=== PATIENT | female | born 1965 | race Caucasian/White ===

== ENCOUNTER 2017-11-21 08:16 | Day surgery (SDC) | payer BC ==
[2017-11-21] MEDS ORDERED: LIDOCAINE 1% MDV 20ML VIAL SQ (08:30)
[2017-11-21] MEDS ORDERED: PROPOFOL 200 MG/20 ML VIAL As Ordered (09:25)
[2017-11-21] MEDS ORDERED: LIDOCAINE 2% INJ 100 MG/5 ML SDV (FOR ANES.) As Ordered (09:25)
[2017-11-21] MEDS ORDERED: ROCURONIUM BROMIDE 50 MG/5 ML VIAL As Ordered (09:25)
[2017-11-21] MEDS ORDERED: fentaNYL 100 MCG/2 ML INJECTION (J3010) As Ordered (09:26)
[2017-11-21] MEDS ORDERED: MIDAZOLAM INJ 2 MG/2 ML VIAL (J2250) As Ordered (09:26)
[2017-11-21] MEDS ORDERED: GLYCOPYRROLATE INJ 0.2 MG/ML 2 ML VIAL As Ordered (09:29)
[2017-11-21] MEDS: LR 1,000 ML IV (09:42)
[2017-11-21] MEDS ORDERED: ePHEDrine SULFATE 25 MG/5 ML(5MG/ML) SYRINGE As Ordered (10:34)
[2017-11-21] MEDS ORDERED: fentaNYL 100 MCG/2 ML INJECTION (J3010) IV (11:15)
[2017-11-21] MEDS ORDERED: IBUPROFEN 600 MG TAB PO (11:15)
[2017-11-21] MEDS ORDERED: ONDANSETRON 4MG/2ML VIAL (J2405) IV (11:15)
[2017-11-21] MEDS ORDERED: HYDROMORPHONE HCL 0.5 MG/ 0.5 ML SYRINGE (J1170 PER 1) IV (11:15)
[2017-11-21] MEDS ORDERED: PERCOCET 5MG/325MG TAB PO (11:15)
[2017-11-21] MEDS ORDERED: LR 1,000 ML IV ×2 (11:15)
== END 2017-11-21 12:53 | disposition home or self-care (01) ==
LOC: M SDC 08:16
DX: N95.0 Postmenopausal bleeding (principal); R93.8 Abnormal findings on diagnostic imaging of other specified body structures; N84.8 Polyp of other parts of female genital tract; I10 Essential (primary) hypertension; E78.00 Pure hypercholesterolemia, unspecified; M25.562 Pain in left knee; Z79.899 Other long term (current) drug therapy; Z87.828 Personal history of other (healed) physical injury and trauma; Z87.39 Personal history of other diseases of the musculoskeletal system and connective tissue; Z98.51 Tubal ligation status
CPT/HCPCS: 58558

== ENCOUNTER 2018-05-29 07:34 | Day surgery (SDC) | payer BC ==
[~2018-05-29] VITALS: Ht 154.9 cm; Wt 62.1 kg
[~2018-05-29 07:34] MED LIST: BLAC40CA2 PO; CYCL10TA PO; IBUPOTC PO; LR 1,000 ML IV ONE; MAXZTA PO; MELA3TAB24 PO; METR1GEL4 TOP; MULT1TAB10 PO; TACR0.1O TOP; TUMS750C5 PO; VITA-110 PO
[2018-05-29] MEDS ORDERED: LIDOCAINE 2% INJ 100 MG/5 ML SDV (FOR ANES.) As Ordered ONE (07:49)
[2018-05-29] MEDS ORDERED: PROPOFOL 200 MG/20 ML VIAL As Ordered ONE (07:49)
[2018-05-29] MEDS ORDERED: fentaNYL 100 MCG/2 ML INJECTION (J3010) As Ordered ONE (07:49)
[2018-05-29] MEDS ORDERED: MIDAZOLAM INJ 2 MG/2 ML VIAL (J2250) As Ordered ONE (07:49)
[2018-05-29] MEDS ORDERED: dexameTHASONE 4 MG/ML 1ML VIAL (J1100) As Ordered ONE (09:20)
[2018-05-29] MEDS ORDERED: ONDANSETRON 4MG/2ML VIAL (J2405) As Ordered ONE (09:20)
[2018-05-29] MEDS ORDERED: PHENYLephrine HCL 500 MCG/5 ML (100MCG/ML) SYRINGE (J2370) As Ordered ONE (09:24)
[2018-05-29] MEDS ORDERED: KETOROLAC 60 MG/2 ML VIAL (J1885) As Ordered ONE (09:35)
[2018-05-29] MEDS ORDERED: PERCOCET 5MG/325MG TAB PO PRN (10:15)
[2018-05-29] MEDS ORDERED: ONDANSETRON 4MG/2ML VIAL (J2405) IV PRN (10:15)
[2018-05-29] MEDS ORDERED: METOCLOPRAMIDE INJ 10MG/2ML VIAL (J2765) IV PRN (10:15)
[2018-05-29] MEDS ORDERED: IBUPROFEN 600 MG TAB PO PRN (10:15)
[2018-05-29] MEDS ORDERED: LR 1,000 ML IV SCH ×2 (10:15)
[2018-05-29] MEDS ORDERED: fentaNYL 100 MCG/2 ML INJECTION (J3010) IV PRN (10:15)
--- NOTE | 2018-05-29 10:51 | RO ---
DATE OF PROCEDURE: 05/29/2018 PREOPERATIVE DIAGNOSIS: Postmenopausal bleeding and history of hyperplasia in the past. POSTOPERATIVE DIAGNOSIS: Postmenopausal bleeding and history of hyperplasia in the past. PROCEDURE: Dilation and curettage (D and C), hysteroscopy. SURGEON: Dr. Sera Patterson STEVEDORING SUPERINTENDENT: ANESTHESIA: Laryngeal mask airway (LMA). BRIEF DESCRIPTION OF PROCEDURE AND FINDINGS: Kelsey was brought to the operating room where sufficient LMA anesthesia was induced and she was prepped, draped and positioned in the usual sterile fashion with the bladder emptied and the cervix grasped with a single tooth tenaculum. It is not that accessible from below. The cervix was carefully dilated and the hysteroscope placed. As shown in the operative photos, there was a very benign bland endometrial cavity appearance. There did not appear to be any overgrowth or hyperplasia. There did not appear to be any distortion or ulceration or hypervascularity of the uterine wall and the endometrium. The tubal ostia were normal in appearance. The uterine contour was normal in appearance. There was simply no lesions to be visualized and fairly atrophic appearance throughout. Aggressive curettage was undertaken in order to get some sample and the procedure was ended. Estimated blood loss for the procedure was maybe 3 5 mL. Fluid replacement was crystalloid. Complications: None. Condition and Disposition: Kelsey tolerated the procedure well and was recovering in the recovery room in good condition.
[2018-05-29 11:00] VITALS: BP 115/75
== END 2018-05-29 11:30 | disposition home or self-care (01) ==
LOC: M SDC 07:34
PROVIDERS: ATTEND Obstetrics & Gynecology
DX: N95.0 Postmenopausal bleeding (principal); Z79.899 Other long term (current) drug therapy; I10 Essential (primary) hypertension
CPT/HCPCS: 58558; 88305; J1100; J1885; J2250; J2370; J2405; J3010

== ENCOUNTER → 2024-07-03 | Outpatient (REF) | payer BC ==
[~2024-07-03] MED LIST changes: +CYCL-707 PO; -CYCL10TA PO; -LR 1,000 ML IV ONE; -MAXZTA PO; +TRIA75TA10 PO
== END ==
LOC: M SFHCDERM 17:05
PROVIDERS: ATTEND Nurse Practitioner Family
DX: B35.4 Tinea corporis (principal)

== ENCOUNTER → 2025-01-22 | Outpatient (REF) | payer BC | LOC: M SFHCDERM 17:45 | PROVIDERS: ATTEND Nurse Practitioner Family | DX: D49.2 Neoplasm of unspecified behavior of bone, soft tissue, and skin (principal) ==